=== PATIENT | male | born 1975 | race Two or more races ===

== ENCOUNTER 2021-03-22 08:30 | Inpatient (IN) | payer OTHER ==
[~2021-03-22] VITALS: Ht 180.3 cm; Wt 111.1 kg
[2021-03-22] MEDS ORDERED: GABAPETIN PO (10:49)
[2021-03-25] MEDS ORDERED: GABAPENTIN100 M2 (07:57)
[2021-04-02] MEDS ORDERED: OXYC1TAB9 PO (13:46)
[2021-04-02] MEDS ORDERED: PROTONIX IV40 MG IV (13:46)
[2021-04-02] MEDS ORDERED: CARAFATE1 GM PO (13:46)
[2021-04-02] MEDS ORDERED: LEVSIN/SL0.125 MG SL (13:47)
[2021-04-02] MEDS ORDERED: INTESTINEX680 M1 PO (13:47)
[2021-04-02] MEDS ORDERED: PROTONIX40 MG PO (13:53)
== END 2021-04-02 14:21 | disposition home or self-care (01) | DRG 330 ==
LOC: O/R 03-25 05:50 → SURH 03-25 05:50
PROVIDERS: ADMIT Surgery; ATTEND Surgery
PROC: 0DTN4ZZ Resection of Sigmoid Colon, Percutaneous Endoscopic Approach (ICD-10-PCS; principal; 2021-03-31)
PROC: 0DBP4ZZ Excision of Rectum, Percutaneous Endoscopic Approach (ICD-10-PCS; 2021-03-31)
PROC: 07BC4ZX Excision of Pelvis Lymphatic, Percutaneous Endoscopic Approach, Diagnostic (ICD-10-PCS; 2021-03-31)
PROC: 0DJD8ZZ Inspection of Lower Intestinal Tract, Via Natural or Artificial Opening Endoscopic (ICD-10-PCS; 2021-03-31)
PROC: 0D1B4Z4 Bypass Ileum to Cutaneous, Percutaneous Endoscopic Approach (ICD-10-PCS; 2021-03-31)
DX: C20 Malignant neoplasm of rectum (principal); K62.5 Hemorrhage of anus and rectum; R59.0 Localized enlarged lymph nodes; I11.9 Hypertensive heart disease without heart failure; F43.21 Adjustment disorder with depressed mood

== ENCOUNTER 2022-01-16 11:30 | Inpatient (IN) | payer OTHER ==
[~2022-01-16 11:30] MED LIST: CARAFATE1 GM PO; GABAPENTIN100 M2; GABAPETIN PO; INTESTINEX680 M1 PO; LEVSIN/SL0.125 MG SL; OXYC1TAB9 PO; PROTONIX IV40 MG IV; PROTONIX40 MG PO
[2022-01-16] MEDS ORDERED: GABAPENTIN300 M2 PO (13:36)
[2022-01-19] MEDS ORDERED: FAMOTIDINE20 MG (11:38)
[2022-01-19] MEDS ORDERED: DEXAMETHASO4 MG/1 M1 (11:38)
[2022-01-19] MEDS ORDERED: OMEPRAZOLE20 M1 (11:38)
== END 2022-01-20 23:01 | disposition home or self-care (01) | DRG 348 ==
LOC: O/R 01-18 08:18 → SURG 01-18 11:30
PROVIDERS: ADMIT Colon & Rectal Surgery; ATTEND Colon & Rectal Surgery
PROC: 4A12X4Z Monitoring of Cardiac Electrical Activity, External Approach (ICD-10-PCS; 2022-01-18)
PROC: 0DBB4ZZ Excision of Ileum, Percutaneous Endoscopic Approach (ICD-10-PCS; principal; 2022-01-18 11:30)
DX: Z43.2 Encounter for attention to ileostomy (principal); C20 Malignant neoplasm of rectum; K62.5 Hemorrhage of anus and rectum; R59.0 Localized enlarged lymph nodes; K66.0 Peritoneal adhesions (postprocedural) (postinfection); I11.9 Hypertensive heart disease without heart failure; Z20.822 Contact with and (suspected) exposure to COVID-19

== ENCOUNTER 2022-11-09 22:04 | Inpatient (IN) | payer OTHER ==
[~2022-11-09] VITALS: Ht 180.3 cm; Wt 108.9 kg
[~2022-11-09 22:04] MED LIST changes: +DEXAMETHASO4 MG/1 M1; +FAMOTIDINE20 MG; +GABAPENTIN300 M2 PO; +OMEPRAZOLE20 M1
[2022-11-09] MEDS ORDERED: NEURONTIN300 MG PO (22:18)
[2022-11-09] MEDS ORDERED: CARAFATE1 GM (22:19)
[2022-11-09] MEDS ORDERED: BENTYL10 MG/1 ML (22:19)
[2022-11-09] MEDS ORDERED: PRILOSEC OTC20 MG (22:19)
--- NOTE | 2022-11-09 22:19 | NUR ---
PTE ALERTA Y ORIENTADO X3, ACOMPANADO DE FAMILIAR QUIEN REFIERE [facility] POR JORDAN COLITIS HISQUEMICA SEVERA. REFIERE QUE HOY VIENE POR ABDOMEN [place] Y MUCHO DOLOR PTE REFIERE [facility] DR [facility] ES [facility]. [facility]. SE RICKY SV Y SE UBICA.
--- NOTE | 2022-11-09 23:18 | NUR ---
EVALUA PTE. SE EDUCA SOBRE [place] MEDICO, REFIERE ENTENDER. SE REALIZAN MUESTRAS DE LABORATORIO BAJO MEDIDAS ASEPTICAS. SE ADMINISTRAN MEDICAMENTOS PIA ORDEN MEDICA. PENDIENTE RE-EVALUACION MEDICA.
--- NOTE | 2022-11-10 07:34 | NUR ---
SE LE NOTIFICA A DR, TOUS POR EL DR, VICTORINO LA CONSULTA DEL PACIETNE. SE MANTIENE ALERTA CONCIENTE Y TRANAUILO. SE LE ANGELA S/V LA CUAL SE DOCUEMTA.PTE AL MOMENTO AYAZ DE DOLOR,.Y DESCNSANDO , SE OBSERVA CON IVF;S PATENTE Y AYAZ DE EDEMA.
[2022-11-10] MEDS ORDERED: PANTOPRAZOLE SO40 MG (15:01)
[2022-11-17] MEDS ORDERED: FAMOTIDINE20 MG PO (13:09)
[2022-11-17] MEDS ORDERED: FUSION PLUS CA1 EACH PO (13:09)
[2022-11-17] MEDS ORDERED: ABANEU-SL TABL1 EACH SL (13:09)
[2022-11-17] MEDS ORDERED: NEURONTIN300 MG PO (13:09)
[2022-11-17] MEDS ORDERED: INTESTINEX680 M2 PO (13:09)
[2022-11-17] MEDS ORDERED: PANTOPRAZOLE SO40 MG PO (13:09)
[2022-11-17] MEDS ORDERED: VANCOMYCIN HCL125 MG PO (13:09)
== END 2022-11-17 15:15 | disposition home or self-care (01) | DRG 372 ==
LOC: ER 22:05 → SEC-K 11-10 13:31 → SURH 11-10 15:04
PROVIDERS: General Practice; Internal Medicine Geriatric Medicine; ADMIT Colon & Rectal Surgery; ATTEND Colon & Rectal Surgery
PROC: 0DBM8ZX Excision of Descending Colon, Via Natural or Artificial Opening Endoscopic, Diagnostic (ICD-10-PCS; principal; 2022-11-16)
DX: A04.72 Enterocolitis due to Clostridium difficile, not specified as recurrent (principal); C20 Malignant neoplasm of rectum; K55.8 Other vascular disorders of intestine; Q27.30 Arteriovenous malformation, site unspecified; C78.00 Secondary malignant neoplasm of unspecified lung; I72.8 Aneurysm of other specified arteries; I10 Essential (primary) hypertension; Z20.822 Contact with and (suspected) exposure to COVID-19